=== PATIENT | male | born 1955 | race Caucasian/White ===

== ENCOUNTER 2023-04-21 07:12 | Day surgery (SDC) | payer MEDICARE ==
[~2023-04-21 07:12] MED LIST: Lactated Ringers 1,000 ML IV SCH
[2023-04-21] MEDS ORDERED: Propofol 200 MG/20 ML SDV ONE (08:04)
[2023-04-21] MEDS ORDERED: Lidocaine 2% 5 ML SDV ONE (08:04)
[2023-04-21] MEDS ORDERED: Lactated Ringers 1,000 ML IV SCH (09:15)
== END 2023-04-21 09:40 | disposition home or self-care (01) ==
LOC: MW.SDS 07:12
PROVIDERS: ATTEND Surgery
DX: Z12.11 Encounter for screening for malignant neoplasm of colon (principal); K57.30 Diverticulosis of large intestine without perforation or abscess without bleeding; J44.9 Chronic obstructive pulmonary disease, unspecified; M19.90 Unspecified osteoarthritis, unspecified site; K21.9 Gastro-esophageal reflux disease without esophagitis; I10 Essential (primary) hypertension; G47.30 Sleep apnea, unspecified; E66.9 Obesity, unspecified; F17.290 Nicotine dependence, other tobacco product, uncomplicated; Z86.010 Personal history of colon polyps; Z80.0 Family history of malignant neoplasm of digestive organs; Z79.899 Other long term (current) drug therapy; Z88.5 Allergy status to narcotic agent
CPT/HCPCS: G0105; J2704; J7120; 00812; J3490